=== PATIENT | male | born 1990 | race Caucasian/White ===

== ENCOUNTER 2017-11-22 14:04 | Inpatient (IN) | payer OTHER ==
[~2017-11-22] VITALS: Ht 168.9 cm; Wt 49.2 kg
--- NOTE | 2017-11-22 14:31 | EMERGENCY ROOM VISIT NOTE ---
History Report prepared by Sheyla: Angelo Hawley Under the Supervision of: Dr. Teddy Isidro M.D. First contact with patient: 14:17 Chief Complaint: MENTAL HEALTH EVALUATION Stated Complaint: AUDIO-VISUAL HALLUCINATIONS History of Present Illness The patient is a 27 year old male who presents to the Emergency Room with complaints of a worsening need for a mental health evaluation over the past couple weeks. Per the psych shoe parts caser, IVAN at [facility] was called in, because the patient has been having auditory and visual hallucinations over the past 2 weeks, and his mental state has been worsening. The caller reported that she believes that the patient stopped taking his psych medications during all of 2017 due to similar issues. The patient has been reported to be unable to function during class, and has been having sleep disturbances. He is a PhD student here. The caller adds that the patient has been burning himself with cigarettes. The patient states that he has been "hearing and seeing things", including somebody singing, and when he is walking, he sees someone's face changing. The patient adds that he was presenting something in class, and he saw numbers changing in front of him, and he could not concentrate. The patient notes that he was diagnosed with depression in the past, and has only taken Zoloft, which made his symptoms worse. The patient says that he has been excessively excited recently, but has not had any feelings of guilt. He adds that he has had feelings of anger however. The patient states that he has had problems falling asleep recently. He says that he has not been under more stress than usual recently. He denies any suicidal or homicidal ideations. The patient states that he has been burning himself with cigarettes on his fingers. He says that he has not overdosed on medications recently, and has not used any recreational drugs, but adds that he does smoke. The patient states that his appetite has been fluctuating recently. Source of History: patient, other (psych shoe parts caser) Onset: A couple weeks ago Position: other (global) Symptom Intensity: seeing and hearing things Quality: other (need for mental health evaluation) Timing: worsening Note: Associated symptoms: Burning his fingers with cigarettes. Denies SI or HI. Review of Systems See HPI for pertinent positives and negatives. A total of ten systems were reviewed and were otherwise negative. Past Medical & Surgical Medical Problems: (1) Depression Family History No pertinent family history Social History Smoking Status: Never Smoker Drug Use: none Housing Status: lives with roommate Occupation Status: [employer] student Current/Historical Medications No Active Prescriptions or Reported Meds Allergies Coded Allergies: No Known Allergies (Unverified , 11/22/17) Physical Exam Vital Signs Date Time Temp Pulse Resp B/P (MAP) Pulse Ox O2 Delivery O2 Flow Rate FiO2 11/22/17 19:46 76 16 119/73 100 11/22/17 17:08 68 22 119/80 98 Room Air 11/22/17 15:45 99 20 110/68 100 Room Air 11/22/17 14:11 36.8 123 20 142/87 98 Room Air Physical Exam Physical Exam GENERAL: He is oriented to person, place, and time. He appears well-developed and well-nourished. He does not appear distressed. ____ HENT: Exam performed. Head: Normocephalic and atraumatic. Right Ear: External ear normal. No mastoid tenderness. Left Ear: External ear normal. No mastoid tenderness. Mouth/Throat: The oropharynx is clear and moist. No trismus in the jaw. No dental abscesses or uvula swelling. No oropharyngeal exudate or tonsillar abscesses. ____ EYES: Conjunctivae and EOM are normal. Pupils are equal, round, and reactive to light. Right eye exhibits no discharge. Left eye exhibits no discharge. No scleral icterus. ____ NECK: Normal range of motion. Neck supple. No JVD present. No spinous process tenderness present. No carotid bruit present. No rigidity. No tracheal deviation and normal range of motion present. No Brudzinski's sign and no Kernig 's sign noted. ____ CV: Normal rate, regular rhythm, normal heart sounds and intact distal pulses. There is no peripheral edema. Palpable radial pulses bue. ____ PULM/CHEST: Effort normal and breath sounds normal. No respiratory distress. No stridor. He has no wheezes. He has no rales. Chest Wall: He exhibits no tenderness. ____ ABD: The abdomen is soft. Bowel sounds are normal. He has no distension. No mass is present. There is no tenderness. There is no rebound, no guarding, no Turcios's sign and no tenderness at McBurney's point. Rovsig negative MUSC/SKEL: Normal range of motion. There is no peripheral edema, tenderness or deformity. LYMPH: No cervical adenopathy. ____ NEURO: He is alert and oriented to person, place, and time. He has normal strength. No cranial nerve deficit or sensory deficit. Coordination and gait normal. GCS eye subscore is 4. GCS verbal subscore is 5. GCS motor subscore is 6. Cerebellar tests wnl. ____ SKIN: Skin is warm and dry. He is not diaphoretic. ____ PSYCH: He has pressured speech. He behavior is normal. Medical Decision & Procedures Laboratory Results 11/22/17 14:47 Red Blood Count 5.36, Mean Corpuscular Volume 85.3, Mean Corpuscular Hemoglobin 29.3, Mean Corpuscular Hemoglobin Concent 34.4, Mean Platelet Volume 9.7, Neutrophils (%) (Auto) 49.6, Lymphocytes (%) (Auto) 41.2, Monocytes (%) (Auto) 5.3, Eosinophils (%) (Auto) 3.2, Basophils (%) (Auto) 0.5, Neutrophils # (Auto) 3.26, Lymphocytes # (Auto) 2.70, Monocytes # (Auto) 0.35, Eosinophils # (Auto) 0.21, Basophils # (Auto) 0.03 11/22/17 14:47 Test 11/22/17 14:15 11/22/17 14:36 11/22/17 14:47 Urine Color YELLOW Urine Appearance CLOUDY (CLEAR) Urine pH 8.5 (4.5-7.5) Urine Specific [place] 1.009 (1.000-1.030) Urine Protein NEG (NEG) Urine Glucose (UA) NEG (NEG) Urine Ketones NEG (NEG) Urine Occult Blood NEG (NEG) Urine Nitrite NEG (NEG) Urine Bilirubin NEG (NEG) Urine Urobilinogen NEG (NEG) Urine Leukocyte Esterase NEG (NEG) Urine WBC (Auto) 1-5 /hpf (0-5) Urine RBC (Auto) 0-4 /hpf (0-4) Urine Hyaline Casts (Auto) 0 /lpf (0-5) Urine Epithelial Cells (Auto) 5-10 /lpf (0-5) Urine Bacteria (Auto) NEG (NEG) Urine Opiates Screen NEG (NEG) Urine Methadone, Qualitative NEG (NEG) Urine Barbiturates NEG (NEG) Urine Phencyclidine (PCP) Level NEG (NEG) Ur Amphetamine/Methamphetamine NEG (NEG) MDMA (Ecstasy) Screen NEG (NEG) Urine Benzodiazepines Screen NEG (NEG) Urine Cocaine Metabolite NEG (NEG) Urine Marijuana (THC) NEG (NEG) Bedside Glucose 95 mg/dl (70-99) White Blood Count 6.56 K/uL (4.8-10.8) Red Blood Count 5.36 M/uL (4.7-6.1) Hemoglobin 15.7 g/dL (14.0-18.0) Hematocrit 45.7 % (42-52) Mean Corpuscular Volume 85.3 fL (80-100) Mean Corpuscular Hemoglobin 29.3 pg (25-34) Mean Corpuscular Hemoglobin Concent 34.4 g/dl (32-36) Platelet Count 232 K/uL (130-400) Mean Platelet Volume 9.7 fL (7.4-10.4) Neutrophils (%) (Auto) 49.6 % Lymphocytes (%) (Auto) 41.2 % Monocytes (%) (Auto) 5.3 % Eosinophils (%) (Auto) 3.2 % Basophils (%) (Auto) 0.5 % Neutrophils # (Auto) 3.26 K/uL (1.4-6.5) Lymphocytes # (Auto) 2.70 K/uL (1.2-3.4) Monocytes # (Auto) 0.35 K/uL (0.11-0.59) Eosinophils # (Auto) 0.21 K/uL (0-0.5) Basophils # (Auto) 0.03 K/uL (0-0.2) RDW Standard Deviation 40.4 fL (36.4-46.3) RDW Coefficient of Variation 13.0 % (11.5-14.5) Immature Granulocyte % (Auto) 0.2 % Immature Granulocyte # (Auto) 0.01 K/uL (0.00-0.02) Anion Gap 5.0 mmol/L (3-11) Est Creatinine Clear Calc Drug Dose 78.3 ml/min Estimated GFR () 114.3 Estimated GFR (Non- 98.6 BUN/Creatinine Ratio 7.3 (10-20) Calcium Level 9.4 mg/dl (8.5-10.1) Total Bilirubin 1.7 mg/dl (0.2-1) Direct Bilirubin 0.3 mg/dl (0-0.2) Aspartate Amino Transf (AST/SGOT) 21 U/L (15-37) Alanine Aminotransferase (ALT/SGPT) 58 U/L (12-78) Alkaline Phosphatase 64 U/L (45-117) Total Protein 7.7 gm/dl (6.4-8.2) Albumin 4.5 gm/dl (3.4-5.0) Thyroid Stimulating Hormone (TSH) 1.040 uIu/ml (0.300-4.500) Ethyl Alcohol mg/dL < 3.0 mg/dl (0-3) Laboratory results reviewed by me Medications Administered Medications (Trade) Dose Ordered Sig/Haroldo Route Start Time Stop Time Status Last Admin Dose Admin Risperidone (Risperdal Tab) 1 mg NOW ONCE PO 11/22/17 19:45 11/22/17 19:46 DC 11/22/17 19:44 1 MG ED Course 1418: The patient was evaluated in room A6. A complete history and physical exam was performed. 1932: Vital signs stable labs within normal limits. I reevaluated the patient and he is resting. I was notified that the patient will be brought up to [address] [place] [address] for further mental health evaluation and treatment. He is agreeable with the plan, and expresses understanding. 1944: Risperdal Tab 1 mg PO per the request of psych. Medical Decision Vital signs stable labs within normal limits. I reevaluated the patient and he is resting. I was notified that the patient will be brought up to [address] [place] [address] for further mental health evaluation and treatment. He is agreeable with the plan, and expresses understanding. Medication Reconcilliation Current Medication List: was personally reviewed by me Blood Pressure Screening Patient's blood pressure: Elevated blood pressure Blood pressure disposition: Elevated BP felt to be situational Impression Primary Impression: Psychosis Scribe Attestation The scribe's documentation has been prepared under my direction and personally reviewed by me in its entirety. I confirm that the note above accurately reflects all work, treatment, procedures, and medical decision making performed by me. The chart was completed utilizing Dragon Speech voice recognition software. Grammatical errors, random word insertions, pronoun errors, and incomplete sentences are an occasional consequence of this system due to software limitations, ambient noise, and hardware issues. Any formal questions or concerns about the content, text, or information contained within the body of this dictation should be directly addressed to the physician for clarification. Departure Information Dispostion Mental Health Acute Care ([address] [place] [address]) Prescriptions No Active Prescriptions or Reported Meds Referrals No Doctor, Assigned (PCP) Patient Instructions [facility] Problem Qualifiers Primary Impression: Psychosis Psychosis type: unspecified psychosis type Qualified Codes: F29 - Unspecified psychosis not due to a substance or known physiological condition
[2017-11-22 15:02] LABS: BASO % 0.5 %; BASO ABS # 0.03 K/uL (0-0.2); EOS % 3.2 %; EOS ABS # 0.21 K/uL (0-0.5); HEMATOCRIT 45.7 % (42-52); HEMOGLOBIN 15.7 g/dL (14.0-18.0); IG# 0.01 K/uL (0.00-0.02); LYMPH % 41.2 %; MEAN CELL VOLUME 85.3 fL (80-100); MEAN CORPUSCULAR HEMOGLOBIN 29.3 pg (25-34); MEAN CORPUSCULAR HGB CONC 34.4 g/dl (32-36); MEAN PLATELET VOLUME 9.7 fL (7.4-10.4); MONO % 5.3 %; MONO ABS # 0.35 K/uL (0.11-0.59); NEUT % 49.6 %; NEUT ABS # 3.26 K/uL (1.4-6.5); PLATELET COUNT 232 K/uL (130-400); RED CELL DISTRIBUTION WIDTH SD 40.4 fL (36.4-46.3); WHITE BLOOD COUNT 6.56 K/uL (4.8-10.8)
[2017-11-22 15:24] LABS: CREATININE 1.04 mg/dl (0.60-1.40)
[2017-11-22 15:25] LABS: ALBUMIN 4.5 gm/dl (3.4-5.0); CALCIUM 9.4 mg/dl (8.5-10.1)
[2017-11-22 15:34] LABS: TOTAL PROTEIN 7.7 gm/dl (6.4-8.2)
[2017-11-22] MEDS ORDERED: RISPERIDONE 1 MG TAB PO ONE (19:45)
[2017-11-22] MEDS ORDERED: NURSING VERBAL MED ORDER ONE ×2 (19:45→20:30)
[2017-11-22 19:46] VITALS: O2SAT 100
[2017-11-22] MEDS ORDERED: MAGNESIUM HYDROXIDE SUSP 30 ML UDC PO PRN (20:15)
[2017-11-22] MEDS ORDERED: SODIUM CHLORIDE 0.65% NA SOLN 45 ML (OCEAN) PRN (20:15)
[2017-11-22] MEDS ORDERED: ACETAMINOPHEN 325 MG TAB PO PRN (20:15)
[2017-11-22] MEDS ORDERED: RISPERIDONE 1 MG TAB PO PRN (20:15)
[2017-11-22] MEDS ORDERED: ALUMINUM/MAGNESIUM SUSP 30 ML UDC PO PRN (20:15)
[2017-11-22] MEDS ORDERED: BISMUTH SUBSALICYLATE PER ML OMNICELL CHARGE PO PRN (20:15)
[2017-11-22] MEDS ORDERED: hydrOXYzine HCL 25 MG TAB PO PRN ×2 (20:15)
[2017-11-22 20:45] VITALS: BP 130/76; PULSE 96; TEMP 36.8; Ht 168.9 cm; Wt 49.2 kg
[2017-11-23 06:41] VITALS: BP_SYST 105; BP_SYST 97; BP_DIAS 60; BP_DIAS 69; PULSE 72; PULSE 87; TEMP 36.3
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
[2017-11-23] MEDS ORDERED: NICOTINE POLACRILEX 2 MG GUM MT PRN (10:30)
[2017-11-23] MEDS: NICOTINE 21 MG/24 HR TDSY TD SCH (10:36)
[2017-11-23] MEDS ORDERED: RISPERIDONE 0.5 MG TAB PO PRN (13:15)
[2017-11-23] MEDS: RISPERIDONE 0.5 MG TAB PO SCH (20:47)
[2017-11-24 06:48] VITALS: BP_SYST 101; BP_DIAS 65; BP_DIAS 69; PULSE 71; PULSE 72; TEMP 36.4
--- NOTE | 2017-11-24 09:02 | Psychiatric Progress Notes ---
Progress Note Date of Service Nov 24, 2017. 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 He was admitted on a 201 voluntary commitment, with a back-up 302 petition. Patient is admitted from home after he presented to the ED on referral from [facility]. He declined recommendations for lithium but agreed to risperidone, and submitted a 72 hour notice, which is up on 11/27/2017. Chief Complaint "Well the medicine works well for now, but gives me dizziness". Subjective Patient was seen & assessed interval progress reviewed with Nursing. Staff report he was started on risperidone yesterday, and refused the recommendations for lithium. He has been unwilling to involve his parents in treatment, and does not want them to know he is here. He was willing to have a meeting with a friend who is a music library assistant, which is scheduled for this afternoon. He reports extended periods of manic symptoms, lasting for months to 2 years, and felt unable to cope with the symptoms with the addition of the auditory and visual hallucinations that he started experiencing 2 weeks prior to admission. He admitted he was having a difficult time determining what was real and what was not, and that he had stopped olanzapine after 1 month as he felt it was interfering with his thinking. Although he had been seen by a psychiatrist at the [facility] psych clinic, he said he had not been back for an appointment in 2 months, and it is unclear if he is still in treatment there. He submitted a 72 hour notice requesting to withdraw from treatment, and there is a 302 petition on his chart: Today on my assessment, Justin states he is doing well here, feels the risperidone is helping "get rid of the hallucinations," stating he last heard voices two days ago, and has not had visual hallucinations. He thinks it is causing dizziness in the morning for the past 2 days. He likes it better than olanzapine as he feels it allows him to "imagine things, stories in my head like a movie." He has been spending his time reading, a book called 101 Stories of Life. Mood is "normal, not out of control." Rates mood "9.5 - 10, 9.5 when I feel dizzy." Sleep is good, nursing report 7 hours the pat two nights, and appetite is "normal." He explains his admission by stating his brain was "overlapping the actual feedback with the expected feedback," and gives the example of seeing a traffic light change colors and seeing a friend's face changing to someone else. He says he is very "self aware" so realizes when he is hallucinating, and this has happened before. He called [facility] and was referred here, but clarifies that he doesn't have a regular provider there. He further clarifies that he was seen at [facility] for initial testing, but hasn't gone over results or seen the psychiatrist. He was getting Zyprexa from Dr. Roman at [facility], but states he is no longer seeing him, as he didn't like the medications he had prescribed. He continues to decline lithium or any other mood stabilizer, stating he doesn't want a medication that "will cause long term care administrator damage, and it will take a long time to find the right dose, and I don't have time to spare" as the semester is almost over and he has his competency exam this summer. He states he understands the risks of not treating his bipolar , stating he wants to "treat depression in a more natural manner, how to recognize the triggers" and deal with lower mood when it occurs. He notes he is willing to take risperidone when manic or psychotic, but no other mood stabilizers. 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 Reviewed risks and benefits of risperidone and his fasting lab results. He has multiple appropriate questions about his diagnosis and treatment, and is willing to follow up at the [facility] psych clinic. Sleep Information Total Hours of Sleep: 7.00 Meal Information Percent of Breakfast Consumed: 100 Percent of Lunch Consumed: 100 Percent of Dinner Consumed: 100 Mental Status Exam During interview pt is: alert and oriented, cooperative Appearance: appropriately dressed (in scrub pants and t-shirt), appropriately groomed (displays adequate hygiene, well-groomed facial hair, very thin) Eye contact is: good Motor behavior is: steady gait & station, no abnormal motor movements Speech: normal in rate, rhythm & volume (accent), other (intelligent vocabulary , well spoken) Affect: blunted Mood is: other ("normal, not out of control") Thought process: goal directed, linear, logical Thought content: reality based without delusions Suicidal thought are: denied Homicidal thoughts are: denied Hallucinations: denies auditory (experienced prior to admission), denies visual (experienced prior to admission) Cognition: memory grossly intact, attention grossly intact, language grossly intact Intelligence estimated to be: above average Insight: fair Judgement: fair Medication Trials Per patient report: - Zoloft: "zombie" - Effexor: "not good" - Prozac: believes this triggered first manic episode - Zyprexa: "restricted my thinking" Impression 27-year-old male presented for mental health evaluation upon recommendation from [facility]. He reports reports symptoms consistent with a bipolar I diagnosis, and questionable medication compliance and outpatient follow-up. He endorses manic symptoms with the addition of auditory and visual hallucinations for the past 2 weeks, and was started on risperidone. [place] was recommended, and he was given UpToDate information about it, but is refusing a mood stabilizer. He is refusing involvement of his parents, but did agree to a meeting with a friend which is scheduled for today. Inpatient treatment is indicated as he remains at risk of harm to self if discharged prematurely given his manic and psychotic symptoms, lack of good discharge treatment and safety plan, need to coordinate with outpatient providers and his support network, and history of multiple suicide attempts. Plan (1) Bipolar 1 disorder 11/23 - Risperdal 0.5mg qHS scheduled; 0.5mg prn dose available if patient willing for BID dosing; continue to monitor for dizziness at lower dose - Fasting labs ordered for tomorrow morning - Unwilling for mood stabilizer at this time. Discussed Lithobid, would recommend continuing to offer over the course of his hospitalization. Patient education packet provided. - q 15 min checks (behavioral with suicide precautions) for safety - Encourage participation in group, recreational and milieu therapies - Coordination of care with [facility], establish aftercare - Encourage family meeting with identified supports 11/24 -Fasting lipid profile and glucose within normal limits. -Patient has submitted a 72 hour notice requesting to withdraw from treatment which expires on 11/26/2017. Continue to gather information for the need for further inpatient treatment. There is a 302 petition on the chart, citing his psychosis and jessica. -Clarify aftercare -patient states he has started the testing process at the [facility] psych clinic, but has no appointments with a therapist or psychiatrist. Would also be helpful to get their diagnostic impressions-Will request records from them and [facility] on Sunday. -Continue risperidone, as patient feels it is helping, and wants to continue his current dose. -Meeting with friend and the social worker palliative care this afternoon. Continue to encourage involvement of family and other supports. Discharge / Aftercare Planning Primary Care Physician: Name: [facility] Therapist: Name: IVAN Visit Code E&M Code: 56490 Inventory Assets Strengths: intelligent, insight into disorder Needs: outpatient providers, stabilizing medications Risk Factors Assessment Male: Yes : No /single/: Yes Health problems: No Mental Health Diagnoses: Yes Substance use disorders: No Previous attempt: Yes Previous attempt; planned: Yes Family history of suicide: Yes Previous psychiatric stay: No Smoker: Yes Protective Factors Assessment Quaker beliefs: Yes : No Responsible for young children: No Employed: Yes Supportive family: Yes Data Vital Signs Last 24 Hrs: Date Time Temp Pulse Resp B/P (MAP) Pulse Ox O2 Delivery O2 Flow Rate FiO2 11/24/17 06:48 36.4 72 16 101/65 71 101/69 Meds Administered Last 24 Hrs: Meds Administered (Past 24Hrs) Medications (Trade) Dose Ordered Sig/Haroldo Route Start Time Stop Time Status Last Admin Dose Admin Risperidone (Risperdal Tab) 1 mg NOW ONCE PO 11/22/17 19:45 11/22/17 19:46 DC 11/22/17 19:44 1 MG Nicotine (Nicoderm Cq 21MG Patch) 1 patch QAM TD 11/23/17 09:00 12/23/17 08:59 11/23/17 10:36 1 PATCH Miscellaneous (Remove Nicoderm Patch) 1 ea HS N/A 11/23/17 22:00 12/23/17 21:59 11/23/17 20:46 1 EA Risperidone (Risperdal Tab) 0.5 mg HS PO 11/23/17 22:00 12/23/17 21:59 11/23/17 20:47 0.5 MG Lab Results Last 24 Hrs: Last 24 Hours Test 11/24/17 06:37 Fasting Glucose 82 mg/dl Triglycerides Level 81 mg/dl Cholesterol Level 127 mg/dl HDL Cholesterol 38 mg/dl LDL Cholesterol, Calculated 73 mg/dl VLDL Cholesterol, Calculated 16 mg/dl Cholesterol/HDL Ratio 3.3
[2017-11-24] MEDS: NICOTINE 21 MG/24 HR TDSY TD SCH (09:33)
[2017-11-24] MEDS: RISPERIDONE 0.5 MG TAB PO SCH (21:33)
[2017-11-25 06:47] VITALS: BP_SYST 101; BP_SYST 103; BP_DIAS 68; BP_DIAS 69; PULSE 78; PULSE 85; TEMP 36.4
--- NOTE | 2017-11-25 07:55 | Psychiatric Progress Notes ---
Progress Note Date of Service Nov 25, 2017. 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 He was admitted on a 201 voluntary commitment, with a back-up 302 petition. Patient is admitted from home after he presented to the ED on referral from [facility]. He declined recommendations for lithium but agreed to risperidone, and submitted a 72 hour notice, which is up on 11/27/2017. Chief Complaint "Great, but a little bit concerned". Subjective Patient was seen & assessed interval progress reviewed with Nursing. Staff report he has been going to groups, participating appropriately, and denying psychotic symptoms. Affect is bright, and he is engaging with his peers, eating and sleeping well. He had a meeting with his music therapist, whom he stated with his primary support in [place]. Teacher noted that he had missed his class for the past couple of weeks, and that when he contacted Justin, he said he was feeling depressed and had been isolating. When he came back to class, he noted that Justin was having rapid mood swings and hallucinations. The patient agreed that he had been depressed for weeks, and then became "hypervigilant" and manic, pacing around his room. He talked about his aunt's suicide about 1 week ago, as she burned herself alive, and said that he had spent the majority of his childhood with her, and believed her had a large impact on his mental state. He stated that his family does not understand depression, and minimize it, calling it sadness. Today the patient reports he is feeling "great, but a little concerned." He brings in a book he borrowed from the unit, Improve Your IQ, and says he is testing himself to see how he is doing cognitively, feels he is having trouble in some areas, and is worried that this could negatively impact his academic work. He was open to the interpretation that it is difficult to know if cognitive impairment is due to his bipolar disorder and resolving psychotic jessica, to medications, or to other factors such as being in the hospital and out of his normal routine. He accepted this, and was encouraged to give himself a weeks to one to 2 months before expecting a full cognitive recovery. He asked multiple appropriate questions about bipolar disorder, including what symptoms to look for and how to minimize the risk of future mood episodes by minimizing stressors. He believes that his aunt's was "subconsciously" affecting him, and contributed to his current episode. He is open to the idea of exploring this further in therapy. He is willing to rescind his 72 hour notice to allow the social media marketing specialist to set up aftercare tomorrow, but still wants to be discharged tomorrow. Sleep Information Total Hours of Sleep: 7.25 Meal Information Percent of Breakfast Consumed: 100 Percent of Lunch Consumed: 100 Percent of Dinner Consumed: 90 Mental Status Exam During interview pt is: alert and oriented, cooperative Appearance: appropriately dressed (In street clothes), appropriately groomed ( Good hygiene, thin) Eye contact is: good Motor behavior is: steady gait & station, no abnormal motor movements Speech: normal in rate, rhythm & volume (accent, soft speech), other ( intelligent vocabulary, well spoken) Affect: euthymic (Laughing appropriately, displays sense of humor) Mood is: other ("Really good, stable.") Thought process: goal directed, linear, logical, clear, coherent Thought content: reality based without delusions Suicidal thought are: denied Homicidal thoughts are: denied Hallucinations: denies auditory (experienced prior to admission), denies visual (experienced prior to admission) Cognition: memory grossly intact, attention grossly intact, language grossly intact Intelligence estimated to be: above average Insight: good Judgement: good Medication Trials Per patient report: - Zoloft: "zombie" - Effexor: "not good" - Prozac: believes this triggered first manic episode - Zyprexa: "restricted my thinking Impression 27-year-old male presented for mental health evaluation upon recommendation from [facility]. He reports reports symptoms consistent with a bipolar I diagnosis, and has started the intake testing process at the [facility] psych clinic, but does not yet have appointments with the psychiatrist or therapist per his report. He previously been getting medications from his family doctor at [facility]. He reported manic symptoms with the addition of auditory and visual hallucinations for the past 2 weeks, and was started on risperidone on admission , with good effect. [place] has been recommended for long-term mood stabilization, and he was given UpToDate information about it, but is declining it, wanting to take risperidone only until his jessica has resolved, and then hoping to manage his disorder without medication, as he is concerned about the long-term effects of mood stabilizers and potential limitation to his creativity and thinking. He is declining involvement of his parents, but did agree to a meeting with a friend who is his sitar teacher and is a primary local good support. Inpatient treatment is indicated as he remains at risk of harm to self if discharged prematurely given his manic and psychotic symptoms, lack of good discharge treatment and safety plan, need to coordinate with outpatient providers and his support network, and history of multiple suicide attempts. He will need to be set up with a therapist and psychiatrist at the [facility] prior to discharge, and has agreed to rescind his 72 hour notice if needed tomorrow so that those appointments can be made before discharge, although he is still hoping to leave tomorrow. He is much improved, and can likely be discharged once aftercare is confirmed. Plan (1) Bipolar 1 disorder 11/23 - Risperdal 0.5mg qHS scheduled; 0.5mg prn dose available if patient willing for BID dosing; continue to monitor for dizziness at lower dose - Fasting labs ordered for tomorrow morning - Unwilling for mood stabilizer at this time. Discussed Lithobid, would recommend continuing to offer over the course of his hospitalization. Patient education packet provided. - q 15 min checks (behavioral with suicide precautions) for safety - Encourage participation in group, recreational and milieu therapies - Coordination of care with [facility], establish aftercare - Encourage family meeting with identified supports 11/24 -Fasting lipid profile and glucose within normal limits. -Patient has submitted a 72 hour notice requesting to withdraw from treatment which expires on 11/26/2017. Continue to gather information for the need for further inpatient treatment. There is a 302 petition on the chart, citing his psychosis and jessica. -Clarify aftercare -patient states he has started the testing process at the [facility] psych clinic, but has no appointments with a therapist or psychiatrist. Would also be helpful to get their diagnostic impressions-Will request records from them and [facility] on Sunday. -Continue risperidone, as patient feels it is helping, and wants to continue his current dose. -Meeting with friend and the social media marketing specialist this afternoon. Continue to encourage involvement of family and other supports. 11/25 -Continue current medication, patient much improved. -Social work to contact the [facility] psych clinic tomorrow and ensure appointments are scheduled with a psychiatrist and therapist within the next 1- 2 weeks. Could consider follow-up at [facility] in the interim if this is not possible. He has agreed to rescind his 72 hour notice if needed to allow time for aftercare to be arranged, but still wants to be discharged tomorrow. He does not meet criteria for involuntary commitment, and can likely be discharged tomorrow Discharge / Aftercare Planning Primary Care Physician: Name: [facility] Therapist: Name: [facility] Visit Code E&M Code: 42880 Inventory Assets Strengths: intelligent, insight into disorder Needs: outpatient providers, stabilizing medications Risk Factors Assessment Male: Yes : No /single/: Yes Health problems: No Mental Health Diagnoses: Yes Substance use disorders: No Previous attempt: Yes Previous attempt; planned: Yes Family history of suicide: Yes Previous psychiatric stay: No Smoker: Yes Protective Factors Assessment Rastafari beliefs: Yes : No Responsible for young children: No Employed: Yes Supportive family: Yes Data Vital Signs Last 24 Hrs: Date Time Temp Pulse Resp B/P (MAP) Pulse Ox O2 Delivery O2 Flow Rate FiO2 11/25/17 06:47 36.4 78 16 103/68 85 101/69 Meds Administered Last 24 Hrs: Meds Administered (Past 24Hrs) Medications (Trade) Dose Ordered Sig/Haroldo Route Start Time Stop Time Status Last Admin Dose Admin Nicotine (Nicoderm Cq 21MG Patch) 1 patch QAM TD 11/23/17 09:00 12/23/17 08:59 11/24/17 09:33 1 PATCH Miscellaneous (Remove Nicoderm Patch) 1 ea HS N/A 11/23/17 22:00 12/23/17 21:59 11/23/17 20:46 1 EA Risperidone (Risperdal Tab) 0.5 mg HS PO 11/23/17 22:00 12/23/17 21:59 11/24/17 21:33 0.5 MG
[2017-11-25] MEDS: NICOTINE 21 MG/24 HR TDSY TD SCH (08:14)
[2017-11-25] MEDS: RISPERIDONE 0.5 MG TAB PO SCH (22:29)
[2017-11-26 06:42] VITALS: BP_SYST 108; BP_SYST 109; BP_DIAS 69; BP_DIAS 71; PULSE 87; PULSE 93; TEMP 36.3
[2017-11-26] MEDS: NICOTINE 21 MG/24 HR TDSY TD SCH (08:41)
[2017-11-26] MEDS ORDERED: RISP-99 PO (10:23)
--- NOTE | 2017-11-26 10:33 | Discharge Instructions ---
Discharge Information Report Includes Report will include the: Discharge Instructions & Summary Admission Admission Date / Time: Nov 22, 2017 at 19:49 Reason for Admission: Psychosis, Paranoid Delusions Discharge Discharge Diagnosis / Problem: Bipolar 1 disorder Condition at Discharge: Fair Discharge Goals Goal(s): Decrease discomfort, Improve function, Learn about illness, Therapeutic intervention, Prevent Disease Progression Activity Recommendations Activity Limitations: resume your previous activity . Instructions / Follow-Up Instructions / Follow-Up . SPECIAL CARE INSTRUCTIONS: 1. Follow through with your scheduled aftercare appointments. If unable to keep an appointment, please call to reschedule. 2. Take your medication only as prescribed. Medication should not be changed or stopped without the approval of your doctor. In the event of worsening symptoms or concerns about side effects, contact your doctor immediately. 3. Utilize new healthy coping skills, anger management skills, and stress management skills learned during your hospitalization. Journal feelings and process them with a support person. Identify stressors or situations that may result in relapse, deterioration or inappropriate behaviors and develop a plan to deal with those issues. 4. If your coping skills are ineffective and you are in crisis, contact your outpatient providers for direction. If unable to reach your providers, please call the CAN HELP LINE AT or go to the closest Emergency Room. 5. Avoid alcohol and un-prescribed drugs. 6. You have been provided with the Mental Health Advance Directives Pamphlet for your review. AFTERCARE APPOINTMENTS: * Please call your insurance company prior to your scheduled appointment to confirm your aftercare providers are covered. Take your insurance information to your appointments. . Discharge / Aftercare Planning Primary Care Physician: Name: [facility] Therapist: Name Of Therapist: IVAN . Follow-Up Care Plan for Follow-Up Care: Pt's aftercare was reviewed and updated during his admission to allow for timely followup with psychiatric providers following discharge. Pt will be returning to services at [facility] for management of medications and therapy. Current Hospital Diet Patient's current hospital diet: Regular Diet Discharge Diet Recommended Diet: Regular Diet Procedures Procedures Performed: No Pending Studies Pending Studies at Discharge: No Medical Emergencies . Who to Call and When: Medical Emergencies: For questions or emergencies related to your hospital stay, please contact the Inpatient Behavioral Health Unit at [phone]. A analytic programmer is on-call 19/03 for the Behavioral Health Unit for emergencies At any time you feel your situation is an emergency, you may also call 911 immediately. . Non-Emergent Contact Non-Emergency issues call your: Primary Care Provider, Psychiatrist, Therapist Advance Directives Do You Have an Existing Mental: No Existing Living Will: No Existing Power of Medical Record Administrator: No Advance Directives Info Given: To Pt/S.O. Advance Directives Reason: Declines as Mental Health Visit. Discharge Summary Admission HPI Per the Admitting provider: Marianne Wolfe (Sam) is a 27-year-old male admitted to [address] [place] [address] after presentation to the ED upon recommendation from [facility]. Pt states he has been noticing "auditory and visual hallucinations" for the past two weeks, but worsening over time. Pt states he notices numbers, distortion of faces, and different colored traffic lights. He also reports hearing muffled conversations or singing at times, denying that any of the voices sound familiar. Pt states these delusions/hallucinations happened once previously in June-July of 2017. Pt states he went through a period of depression in his teens and was trialed on several antidepressants. Pt reports Zoloft, Effexor, and Prozac in the past , with the latter trigger his first "manic episode". Pt reports his first episode of jessica lasted two years, but is now averaging about 4 months. During these phases, the patient reports feeling "really excited, like my brain is on vibrating mode". Pt states that colors seem brighter and he finds it difficult to focus on only one things. He has spent large amounts of money on cameras or other items for his photography, but has learned to cope with his spending over time. He reports increased productivity and "I get a lot of work done, but nothing is connected." Pt states previous "highs" were more manageable, but with the recent addition of hallucinations/delusions, he is having a harder time determining what is reality. Pt reports that after these "highs" he will be "normal" for about one week, and then become depressed. Pt states it is difficult to get out of bed during these depressed phases, stating, "I'll wake up in the morning and then lay on the floor and feel an overwhelming need to fall back asleep." He states his sleep varies from 14+ hours when he is depressed to 3-4 hours when he is manic. The patient was recently given Zyprexa for a 1 month period, but discontinued the medication when it "restricted my thinking." The patient is attached in some ways to his jessica as "it allows me to think about things differently than I would otherwise, I think it's helpful in problem solving." Pt reports 2 previous suicide attempts in he teens during a period of depression (1 attempt by hanging and 1 by cutting). He reports SIB with his initial depressed phase by cutting, and currently ortez with cigarettes to "ground myself and pull me out of my jessica." Pt denies any previous inpatient hospitalizations for mental health. Pt has developed good coping skills including: playing guitar and sitar as well as drawing and photography which are calming and help him work through his thoughts. He states he has been seen twice at the [facility] at the end of August, but has not been back for a follow-up since and is "waiting for a diagnosis." Pt denies recent SI, denies HI, OCD, PTSD, eating disorder, paranoia, and other psychiatric concerns. Pt states he has not felt manic or experienced hallucinations since receiving 1mg of Risperdal in the emergency room. Despite dizziness with this dose, he is interested in continuing Risperdal as it was helpful to clear his thinking. Hospital Course (1) Bipolar 1 disorder 11/23 - Risperdal 0.5mg qHS scheduled; 0.5mg prn dose available if patient willing for BID dosing; continue to monitor for dizziness at lower dose - Fasting labs ordered for tomorrow morning - Unwilling for mood stabilizer at this time. Discussed Lithobid, would recommend continuing to offer over the course of his hospitalization. Patient education packet provided. - q 15 min checks (behavioral with suicide precautions) for safety - Encourage participation in group, recreational and milieu therapies - Coordination of care with [facility], establish aftercare - Encourage family meeting with identified supports 11/24 -Fasting lipid profile and glucose within normal limits. -Patient has submitted a 72 hour notice requesting to withdraw from treatment which expires on 11/26/2017. Continue to gather information for the need for further inpatient treatment. There is a 302 petition on the chart, citing his psychosis and jessica. -Clarify aftercare -patient states he has started the testing process at the [facility] psych clinic, but has no appointments with a therapist or psychiatrist. Would also be helpful to get their diagnostic impressions-Will request records from them and [facility] on Sunday. -Continue risperidone, as patient feels it is helping, and wants to continue his current dose. -Meeting with friend and the social services manager this afternoon. Continue to encourage involvement of family and other supports. 11/25 -Continue current medication, patient much improved. -Social work to contact the [facility] psych clinic tomorrow and ensure appointments are scheduled with a psychiatrist and therapist within the next 1- 2 weeks. Could consider follow-up at [facility] in the interim if this is not possible. He has agreed to rescind his 72 hour notice if needed to allow time for aftercare to be arranged, but still wants to be discharged tomorrow. He does not meet criteria for involuntary commitment, and can likely be discharged tomorrow Risk Factors Assessment Male: Yes : No /single/: Yes Health problems: No Mental Health Diagnoses: Yes Substance use disorders: No Previous attempt: Yes Previous attempt; planned: Yes Family history of suicide: Yes Previous psychiatric stay: No Smoker: Yes Protective Factors Assessment Mormonism beliefs: Yes : No Responsible for young children: No Employed: Yes Supportive family: Yes Day of Discharge Assessment COURSE OF HOSPITALIZATION: Marianne Wolfe who prefers to be called "Justin" is a 27-year-old male who presented to the ED with visual and auditory hallucinations. Pt given 1mg of Risperdal in the ED which resulted in dizziness, but patient felt beneficial for "bringing me out of my jessica". Pt denies hallucinations since receiving initial dose of Risperdal. Pt started on scheduled Risperdal 0.5mg qHS with 0.5mg prn dosing available, but not used. Benefits of mood stabilization was discussed with the patient who is unwilling for trial of lithium or other mood stabilizer at this time. Pt was provided with information on lithium and received counseling during his stay as to the benefits and risks given his diagnosis. Pt has continued to do well on 0.5mg Risperdal and is to be discharged on this dose with follow-up from [facility] to manage medication and provide therapeutic interventions. Safety plan has been completed by the patient during his hospitalization with feed back from staff and personally reviewed by this provider. DAY OF DISCHARGE ASSESSMENT: Pt's case was discussed during Treatment Team. Staff reports the patient is feeling "10 and great". Pt's 72-hour notice is to at 12:15 today, but patient is willing to stay until aftercare can be finalized as his admission took place over a weekend. Pt was seen today to assess readiness for discharge. Pt states he has not been hearing voices since his admission and reports feeling "lonely" because of this; however, he is pleased with his response to the Risperdal. He reports, "everything is clear, I guess I'm surprised." Pt reports he is favorable to returning to [facility] as he already had several sessions there. Pt denies SI/HI or other psychiatric concerns today. Based on review of the patient's records and presentation at this encounter, the patient appears appropriate for discharge today. Transition of care record was reviewed with the patient. Pt was encouraged to continue to take medications as prescribed until recommended to stop by another prescriber. The patient presented as alert and cooperative. The patient was casually dressed and groomed. Eye contact was good. No psychomotor restlessness or agitation was noted. Speech was normal in rate, rhythm, and volume. Affect was mood congruent. The patients mood appeared euthymic. Thought processes were clear, coherent and goal directed without evidence of loose associations or flight of ideas. Thought content/perception was reality based without delusions. The patient denied suicidal and homicidal ideation. The patient denied hallucinations and did not appear to be responding to internal stimuli. Cognition was grossly intact with orientation to person, place and time. Fund of Knowledge/Intelligence were consistent with level of education. Insight and Judgement were good. Laboratory Refer to printed laboratory reports Test 11/22/17 14:15 11/22/17 14:36 11/22/17 14:47 11/24/17 06:37 Urine Color YELLOW Urine Appearance CLOUDY Urine pH 8.5 Urine Specific Hester 1.009 Urine Protein NEG Urine Glucose (UA) NEG Urine Ketones NEG Urine Occult Blood NEG Urine Nitrite NEG Urine Bilirubin NEG Urine Urobilinogen NEG Urine Leukocyte Esterase NEG Urine WBC (Auto) 1-5 Urine RBC (Auto) 0-4 Urine Hyaline Casts (Auto) 0 Urine Epithelial Cells (Auto) 5-10 Urine Bacteria (Auto) NEG Urine Opiates Screen NEG Urine Methadone, Qualitative NEG Urine Barbiturates NEG Urine Phencyclidine (PCP) Level NEG Ur Amphetamine/Methamphetamine NEG MDMA (Ecstasy) Screen NEG Urine Benzodiazepines Screen NEG Urine Cocaine Metabolite NEG Urine Marijuana (THC) NEG POC Glucose 95 White Blood Count 6.56 Red Blood Count 5.36 Hemoglobin 15.7 Hematocrit 45.7 Mean Corpuscular Volume 85.3 Mean Corpuscular Hemoglobin 29.3 Mean Corpuscular Hemoglobin Concent 34.4 Platelet Count 232 Mean Platelet Volume 9.7 Neutrophils (%) (Auto) 49.6 Lymphocytes (%) (Auto) 41.2 Monocytes (%) (Auto) 5.3 Eosinophils (%) (Auto) 3.2 Basophils (%) (Auto) 0.5 Neutrophils # (Auto) 3.26 Lymphocytes # (Auto) 2.70 Monocytes # (Auto) 0.35 Eosinophils # (Auto) 0.21 Basophils # (Auto) 0.03 RDW Standard Deviation 40.4 RDW Coefficient of Variation 13.0 Immature Granulocyte % (Auto) 0.2 Immature Granulocyte # (Auto) 0.01 Sodium Level 137 Potassium Level 4.0 Chloride Level 105 Carbon Dioxide Level 27 Anion Gap 5.0 Blood Urea Nitrogen 8 Creatinine 1.04 Est Creatinine Clear Calc Drug Dose 78.3 Estimated GFR () 114.3 Estimated GFR (Non- 98.6 BUN/Creatinine Ratio 7.3 Random Glucose 98 Calcium Level 9.4 Total Bilirubin 1.7 Direct Bilirubin 0.3 Aspartate Amino Transferase (AST) 21 Alanine Aminotransferase (ALT) 58 Alkaline Phosphatase 64 Total Protein 7.7 Albumin 4.5 Thyroid Stimulating Hormone (TSH) 1.040 Ethyl Alcohol mg/dL < 3.0 Fasting Glucose 82 Triglycerides Level 81 Cholesterol Level 127 HDL Cholesterol 38 LDL Cholesterol, Calculated 73 VLDL Cholesterol, Calculated 16 Cholesterol/HDL Ratio 3.3 Total Time Total Time Spent (min): Greater than 30 minutes Total Time Included: examination of the patient, discharge planning, medication reconciliation, communication with other providers Tobacco Cessation at Discharge Smoking Status: Current Every Day Smoker FDA approved Prescription: declined med & out pt counseling
[2017-11-26] MEDS ORDERED: RISPERIDONE 0.5 MG TAB PO SCH (18:00)
[2017-11-26] MEDS ORDERED: NURSING VERBAL MED ORDER ONE (18:00)
== END 2017-11-26 18:18 | disposition home or self-care (01) | DRG 885 ==
LOC: C.EDB 14:06 → C.MHU 19:49
PROVIDERS: ADMIT Psychiatry & Neurology Child & Adolescent Psychiatry; ATTEND Psychiatry & Neurology Child & Adolescent Psychiatry
DX: F31.9 Bipolar disorder, unspecified (principal)